=== PATIENT | female | born 1975 | race Caucasian/White ===

== ENCOUNTER 2016-09-22 08:03 | Emergency (ER) | payer OTHER ==
[~2016-09-22] VITALS: Ht 160 cm; Wt 120.0 kg
[~2016-09-22 08:03] MED LIST: BENA20TA48 PO; IBUP-1542 PO; METO-448 PO; ULT50 PO; VERA120C2 PO
[2016-09-22 08:06] VITALS: Ht 160 cm; Wt 120.0 kg
[2016-09-22] MEDS ORDERED: KETOROLAC 30 MG INJ IM STA (08:22)
[2016-09-22] MEDS ORDERED: BENA10TA48 PO (09:24)
[2016-09-22] MEDS ORDERED: [UNRECOGNIZED DRUG - CODE] PO (09:48)
--- NOTE | 2016-09-22 09:50 | ERD ---
ER Documentation Chief Complaint Date/Time DATE: 09/22/16 TIME: 09:48 Chief Complaint MIGAINE HEADACHE; LEFT EAR PAIN; FACIAL NUMBNESS; HTN HPI 41-year-old female presents the emergency department complaining of a migraine headache. Patient states that she has had the insidious onset of a bifrontal headache which is consistent with her migraines. The headache was not acute in onset nor thunderclap in nature were significantly different than her previous migraines. She noted a tingling sensation about both sides of her face but no unilateral weakness or numbness. She reported no visual acuity changes. Patient reports no fevers chills or neck stiffness. ROS All systems reviewed and are negative except as per history of present illness. Medications Home Meds Active Scripts Aspirin-Caffeine (Anacin) 500-32 Mg Tablet, 1 TAB PO DAILY for HEADACHE, #20 TAB Prov:MATTHEW UMANA 09/22/16 Reported Medications Benazepril Hcl* (Benazepril Hcl*) 10 Mg Tablet, 30 MG PO BID, #60 TAB 09/22/16 Metoprolol Tartrate* (Lopressor*) 25 Mg Tab, 25 MG PO BID, #60 TAB 04/14/16 Verapamil Hcl* (Verapamil ER*) 120 Mg Cap24h.pel, 120 MG PO DAILY, CAP 04/14/16 Discontinued Reported Medications Benazepril Hcl* (Benazepril Hcl*) 20 Mg Tablet, 20 MG PO BID, #60 TAB 04/14/16 Discontinued Scripts Tramadol HCl (Tramadol HCl) 50 Mg Tablet, 50 MG PO Q6 Y for PAIN, #20 TAB Prov:DALTON ROBBINS NP 08/11/16 Ibuprofen* (Motrin*) 600 Mg Tab, 600 MG PO Q6H Y for PAIN AND OR ELEVATED TEMP, #30 TAB Prov:DALTON ROBBINS NP 08/11/16 Allergies Allergies: Coded Allergies: acetaminophen (Verified Allergy, Unknown, 09/22/16) codeine (Verified Allergy, Unknown, 09/22/16) PMhx/Soc History of Surgery: Yes (CHOLECYSTECTOMY. TUBAL LIGATION) Anesthesia Reaction: No Hx Neurological Disorder: No Hx Respiratory Disorders: No Hx Cardiac Disorders: Yes (HTN) Hx Psychiatric Problems: No Hx Miscellaneous Medical Probl: Yes (migraine) Hx Alcohol Use: No Hx Substance Use: No Hx Tobacco Use: No Smoking Status: Never smoker FmHx Noncontributory for chief complaint Physical Exam Vitals Vital Signs Date Time Temp Pulse Resp B/P Pulse Ox O2 Delivery O2 Flow Rate FiO2 09/22/16 08:06 98.4 78 19 194/104 100 Physical Exam GENERAL: The patient is well developed and appropriate for usual state of health in no apparent distress HEENT: Pupils equal, round, and reactive to light. EOMI. There is no scleral icterus. NECK: C-spine is soft and supple, there is no meningismus. There is no cervical lymphadenopathy. LUNGS: Clear to auscultation bilaterally. There are no rales, wheezes or rhonchi. HEART: Regular rate and rhythm, no murmurs, clicks, rubs or gallops. ABDOMEN: Soft, non-tender, non-distended. There are bowel sounds in all four quadrants. No rebound or guarding. EXTREMITIES: There is no peripheral cyanosis or edema. No focal swelling or erythema. NEURO: The patient moves all four extremities with 5/5 strength. Cranial nerves II - XII are intact. Normal gait. Alert and oriented SKIN: There is no apparent rash or petechiae. HEME/LYMPHATIC: There is no evidence of excessive bruising or lymphedema. PSYCHIATRIC: The patient does not appear anxious or depressed. Results 24 hrs Current Medications Medications (Trade) Dose Ordered Sig/Justin Route PRN Reason Start Time Stop Time Status Last Admin Dose Admin Ketorolac Tromethamine (Toradol) 30 mg ONCE STAT IM 09/22/16 08:22 09/22/16 08:23 DC 09/22/16 08:32 Procedures/MDM Patient was taken to a room, seen and examined. Reevaluation: After pain medication, patient felt much better and remained neurologically nonfocal and well-appearing. Medical decision makin-year-old presents to the emergency department for headache of uncertain etiology. Given her history of previous migraine headaches and her previous history of normal imaging, patient appears to be low risk for significant intracranial concerns. At this time, patient's pain is well controlled she appears to be appropriate for outpatient care. Departure Diagnosis: Primary Impression: Headache Condition: Stable Patient Instructions: Self-Care for Headaches Referrals: DAMIEN COOMBS (PCP) Additional Instructions: See your doctor for follow-up as discussed. Take a copy of your test results, if appropriate, to this follow-up visit. See your doctor or return here if your symptoms do not improve as expected. At any time, please return to the emergency department for any change or worsening in her symptoms. MATTHEW UMANA Sep 22, 2016 09:50
== END 2016-09-22 09:56 | disposition home or self-care (01) ==
LOC: E/R 08:03
DX: R51 Headache (principal); I10 Essential (primary) hypertension; Z79.82 Long term (current) use of aspirin
CPT/HCPCS: 96372; 99284; J1885